=== PATIENT | female | born 1980 | race Asian ===

== ENCOUNTER 2020-09-19 10:17 | Outpatient (CLI) | payer OTHER ==
--- NOTE | 2020-09-20 11:36 | Mammography Report ---
BILATERAL DIGITAL DIAGNOSTIC MAMMOGRAM 3D/2D: 09/19/2020 CLINICAL: Occasional left diffuse breast pain. Comparison is made to exam dated: 09/14/2019 [facility]. The tissue of both breasts is extremely dense, which lowers the sensitivity of mammography. There is a 0.6 cm asymmetry in the left breast anterior depth central to the nipple seen on the crani ocaudal view only 3 cm from the nipple. No other significant masses, calcifications, or other findings are seen in either breast. IMPRESSION: INCOMPLETE: NEEDS ADDITIONAL IMAGING EVALUATION The 0.6 cm asymmetry in the left breast is indeterminate. An ultrasound is recommended. This exam was interpreted at Station ID: [id number]. NOTE: For mammograms, a report in lay terms will be sent to the patient. Approximately 15% of breast malignancies will not be visualized mammographically. In the management of a palpable breast mass, a negative mammogram must not discourage biopsy of a clinically suspicious lesion. Electronically Signed By: Stiven Mcrae M.D. jr/:09/19/2020 11:49:10 ACR BI-RADS Category 0: Incomplete 3340F PARENCHYMAL PATTERN: (VD) - The breast(s) demonstrate(s) extremely dense parenchyma, limiting the sen sitivity of mammography. BI-RADS CATEGORY: (0) - 0 Ultrasound [id number] Immediate follow-up LATERALITY: (B)
--- NOTE | 2020-09-20 11:36 | Ultrasound Report ---
LIMITED ULTRASOUND OF LEFT BREAST: 09/19/2020 CLINICAL: Patient returns today to evaluate a focal asymmetry in the left breast. Comparison is made to exams dated: 09/19/2020 mammogram - [facility] and 09/14/2019 [facility]. Color flow and real-time ultrasound of the left breast 4-6 o'clock region were performed. Jorge scal e images of the real-time examination were reviewed. There is a 0.6 cm hypoechoic mass or cyst in the left breast at 4 o'clock anterior depth 3 cm from th e nipple which is most likely a cyst or dilated duct. IMPRESSION: PROBABLY BENIGN Probable cyst or dilated duct in the left breast. Follow-up ultrasound and mammogram in 6 months are recommended to demonstrate stability. This exam was interpreted at Station ID: [id number]. Electronically Signed By: Stiven Mcrae M.D. jr/:09/19/2020 11:51:41 Ultrasound BI-RADS: 3 Probably benign BI-RADS CATEGORY: (3) - 3 Mammo and US [id number] 6 month follow-up LATERALITY: (B)
== END 2020-09-19 10:18 | disposition home or self-care (01) ==
LOC: DI 10:17
PROVIDERS: ATTEND Student in an Organized Health Care Education/Training Program
DX: N60.12 Diffuse cystic mastopathy of left breast (principal); N64.4 Mastodynia